=== PATIENT | female | born 1965 | race Asian ===

== ENCOUNTER 2025-03-28 10:02 | Outpatient (AMB) | payer BC, SELFPAY ==
--- NOTE | 2025-03-28 10:10 | MHC.PC.OV ---
Vital Signs 03/28/25 10:22 Height 4 ft 10.46 in Weight 118 lb 8 oz BMI 24.4 BP 116/80 Blood Pressure Location Lt brachial Position Sitting Pulse 72 Pulse Source Pulse Oximeter Pulse Oximetry (%) 99 Oxygen Delivery Method Room Air Intake Visit Reasons: establish care Lead Consultant Required: No Accompanied by: Self / Same As Patient Allergies mepivacaine Allergy (Severe, Verified 03/28/25 10:56) Shortness of Breath Medication List - Last Reconciled 03/28/25 by Leonides Kimball MD levothyroxine 50 mcg PO DAILY Tobacco use date assessed: 03/28/25 Dental Screening Dental Screen Date: 03/28/25 Did you have a dental visit in the last 12 months?: Yes Did you have a dental problem in the last 6 months where you did not have access to dental care?: No Was dental information given to patient?: Patient has dentist HPI establish care HPI Details Patient comes in today to establish care - is a new patient to the practice Her previous PCP was at [facility] but he reportedly moved down to [place] several months ago States that she feels okay She denies any headaches or dizziness Denies any chest pains, no SOB No nausea/vomiting, no abdominal pain No change in bowel habits noted Recalls that she was experiencing recurrent chest discomfort and pressure earlier this year in May 2024 and had some initial testing done and was advised that her tests at the time all came back normal, including a normal EKG States that she was still working night shifts at the time and took an extended leave of absence/vacation for a few months and just got back to work last January 2025 Relates that she feels a lot better after taking some time off from work and has not had any recurrence of the above symptoms lately She is still scheduled for cardiac testing (echocardiogram and stress testing) at [facility] next week and is wondering if she still needs to proceed with her tests especially since she is now feeling better and has not had any recurrence of her symptoms over the past few months Patient states that she just had some labs done at [facility] about 1 to 2 weeks ago and will try to send us a copy of these lab results [facility] Medical History (Updated 03/28/25 @ 12:16 by Leonides Kimball MD) History of recurrent deep vein thrombosis (DVT) Acquired hypothyroidism Surgical History (Updated 03/28/25 @ 11:02 by Leonides Kimball MD) History of section Family History Other Diabetes Heart disease Hypertension Prostate cancer Social History (Updated 03/28/25 @ 11:04 by Leonides Kimball MD) Housing: House Patient Tobacco Use Status: Never used Tobacco e-Cigarette/Vaping Use: Never Used Second Hand Smoke Exposure: No service: No Current occupational status: employed Current occupation: nurse Current occupational exposures/hazards: No Cognitive needs: No Hearing needs: No Vision needs: Yes Questionnaire PHQ-9 Over the last 2 weeks, how often have you been bothered by any of the following problems? 1. Little interest or pleasure in doing things: not at all 2. Feeling down, depressed, or hopeless: not at all 3. Trouble falling or staying asleep, or sleeping too much: not at all 4. Feeling tired or having little energy: not at all 5. Poor appetite or overeating: not at all 6. Feeling bad about yourself - or that you are a failure or have let yourself or your family down: not at all 7. Trouble concentrating on things, such as reading the newspaper or watching television: not at all 8. Moving or speaking so slowly that other people could have noticed. Or the opposite - being so fidgety or restless that you have been moving around a lot more than usual: not at all 9. Thoughts that you would be better off or of hurting yourself in some way: not at all Total score: 0 Depression Screening Interpretation: Negative Depression Screening Done: Yes 65494 - PHQ-9 Billing: Yes Source: Developed by Drs. Rolando Yeboah, Vivian Cordova, Braulio Monsivais and colleagues, with an educational greta from [employer]. Thrive Questionnaire Date Thrive assessed: 03/28/25 I am a: Patient What is your living situation today?: I have a steady place to live Within the past 12 months, did the food you bought not last and you didn't have the money to get more?: Never true Within the past 12 months, did you worry whether your food would run out before you got money to buy more?: Never true Do you have trouble paying for medicines?: No Do you have trouble getting transportation to medical appointments?: No Do you have trouble paying your heating and electricity bill?: I choose not to answer this question Do you have trouble taking care of your child, family member or friend?: No Do you have trouble with day-to-day activities such as bathing, preparing meals, shopping, managing finances, etc.?: No Are you currently unemployed and looking for a job?: No Are you interested in more education?: No Please select the resources that you would like help with: Care for elder or disabled Currently or been in a relationship where the following occur: I choose not to answer THRIVE Score: 0 AUDIT C Alcohol Use Questionnaire (AUDIT-C) 1. How often do you have a drink containing alcohol?: Never 3. How often do you have six or more drinks on one occasion?: Never Total Score: 0 Score Reviewed/Action Taken: Yes ROBERT-7 AMB Questionnaire ROBERT-7 Date ROBERT - 7 assessed: 03/28/25 Feeling nervous, anxious, or on edge: 0 = Not at all Not being able to stop or control worryin = Not at all Worrying too much about different things: 0 = Not at all Trouble relaxin = Not at all Being so restless that it is hard to sit still: 0 = Not at all Becoming easily annoyed or irritable: 0 = Not at all Feeling afraid as if something awful might happen: 0 = Not at all Total ROBERT-7 score (0-4 normal; 5-9 mild; 10-14 moderate; 15-21 severe): 0 Source: Developed by Drs. Rolando Yeboah, Vivian Cordova, Braulio Monsivais and colleagues, with an educational greta from [employer]. Review of Systems Const Denies chills, Denies fatigue, Denies fever(s) and Denies headache(s) ENT Denies dysphagia, Denies dizziness, Denies otalgia, Denies headache(s), Denies neck pain, Denies odynophagia and Denies sore throat Card Denies chest pain, Denies palpitations and Denies dyspnea Resp Denies chest congestion, Denies cough and Denies dyspnea GI Denies abdominal pain, Denies constipation, Denies dysphagia, Denies heartburn, Denies diarrhea, Denies nausea, Denies odynophagia and Denies vomiting Denies difficulty voiding, Denies nocturia, Denies dysuria and Denies urinary urgency Musc Denies back pain and Denies neck pain Skin/Breast Denies rash Neuro Denies dizziness and Denies headache(s) Endo Denies fatigue and Denies palpitations Physical exam (Primary Care) Vital Signs: Last Vital Signs Pulse 72 03/28/25 10:22 BP 116/80 03/28/25 10:22 Pulse Ox 99 03/28/25 10:22 Oxygen Delivery Method Room Air 03/28/25 10:22 BMI result Body Mass Index 24.4 Tobacco/Smoking Status: Tobacco use Status Tobacco use date assessed 03/28/25 03/28/25 10:14 Patient Tobacco Use Status Never used Tobacco 03/28/25 10:31 e-Cigarette/Vaping Use Never Used 03/28/25 10:31 PHQ-9: PHQ-9 Score PHQ-9: Total score 0 03/28/25 10:10 Depression Screening Interpretation: Negative Thrive Assessment: Date of Thrive Assessment Date Thrive assessed 03/28/25 03/28/25 10:14 Currently or been in a relationship where the following occur: I choose not to answer Const General: no acute distress and alert HENMT Ears: TM's normal bilaterally and EAC's normal Throat: Yes posterior oropharynx normal and Yes tonsils normal (no TP congestion) Neck Neck: Yes supple and No lymphadenopathy Thyroid: Thyroid normal Resp Auscultation: clear to auscultation bilaterally, no rales and no wheezes Cardio Rate: regular rate Rhythm: regular rhythm Heart sounds: no murmurs GI Palpation (GI): Soft to palpation and nontender Auscultation: normal bowel sounds General: Yes no CVA tenderness Back/Spine/Pelvis Back: no CVA tenderness Thoracic/Lumbar Spine: No lumbar spinal tenderness Skin Rashes: no rashes Extrem General: Yes no clubbing, cyanosis or edema Coding Level of Care Code New Pt Level 4 (53021) Diagnoses Acquired hypothyroidism E03.9 Chest discomfort R07.89 Additional Codes PHQ-9 - 92003 - PHQ-9 Billing: Yes ([id number]) Assessment & Plan Assessment & Plan (1) Acquired hypothyroidism: Code(s): E03.9 - Hypothyroidism, unspecified Category: Medical Plan: Continue Levothyroxine 50 mcg QD Patient states that she just had some labs done at [facility] about 1 to 2 weeks ago and will try to have a copy of these results sent to us for review BILL (2) Chest discomfort: Code(s): R07.89 - Other chest pain Category: Medical Plan: Have advised patient that women in general can present with atypical cardiac symptoms / chest pains so even if she has not had any recent recurrence of the chest discomfort/pressure that she had earlier this year, it is still advisable for her to proceed with her scheduled cardiac testing for a more comprehensive evaluation before chalking up her symptoms to just stress She will proceed with her echocardiogram and cardiac stress testing with cardiology over the next week or so and have advised patient to make sure that we are sent a copy of all her test results for review and documentation Plan Follow up in 3 months
[2025-03-28 10:22] VITALS: BP 116/80; PULSE 72; O2SAT 99; BMI 24.4
--- OUTSIDE RECORDS SUMMARY | 2025-03-28 12:02 | XMS_ITS | Clinical Summary ---
Author Organization [facility] Address [address] [place] [id number] Phone Care Team Providers Care Management Coordinator Name Role Phone Wade Gomez MD Primary Care Provider [phone] Allergies Active Allergy Reactions Criticality Noted Date Comments Mepivacaine Shortness Of Breath High 01/29/2019 Medications levothyroxine (TIROSINT) 50 mcg Cap Take 50 mcg by mouth every morning. Active cholecalciferol (VITAMIN D3) 25 MCG (1,000 unit) tabletIndications: Encounter for gynecological examination without abnormal finding Take 1 tablet (1,000 Units total) by mouth daily. 30 tablet 12 0 Active Active Problems Problem Noted Date Diagnosed Date Acquired hypothyroidism 03/24/2020 Immunizations Immunization Administration Dates Next Due COVID-19 (Pre-03/17) Pfizer Vaccine, mRNA, PF 06/27/2020,05/27/2020 Hepatitis B Adult 06/02/2008,12/18/2007,11/13/19 08 Tdap 03/30/2008 Family History Medical History Relation Comments Prostate cancer Brother No Known Problems Father Diabetes Mother Hypertension Mother Breast cancer Sister Relation Status Comments Brother Alive Father Alive Mother Alive Sister Alive Social History Tobacco Use Types Packs/Day Years Used Date Smoking Tobacco: Never Smokeless Tobacco: Never Alcohol Use Standard Drinks/Week Comments Never 0 (1 standard drink = 0.6 oz pur e alcohol) Education Answer Date Recorded Are you interested in more education? Not on millicent e 09/20/2022 Are you concerned about learning? Not on file 09/20/2022 No 09/20/2022 No 09/20/2022 Digital Access Answer Date Recorded No 10/19/2022 No 10/19/2022 No 10/19/2022 Reliable internet access at home? Not on file 10/19/2022 Device with a working camera? 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 file Not on file Not on file Last Filed Vital Signs Vital Sign Reading Time Taken Comments Blood Pressure 120/72 03/24/2020 12:12 PM EDT Pulse - - Temperature - - Respiratory Rate - - Oxygen Saturation - - Inhaled Oxygen Concentration - - Weight 52.2 kg (115 lb) 03/24/2020 12:12 PM EDT Height 152.4 cm (5') 03/24/2020 12:12 PM EDT Body Mass Index 22.46 03/24/2020 12:12 PM EDT Plan of Treatment Health Maintenance Due Date Last Done Comments LIPID PANEL 1965 TSH LEVEL 1965 DEPRESSION SCREENING 1979 HEPATITIS C SCREENING 09/11/1985 HIV ONE-TIME SCREENING (18-6 5 YEARS) 09/11/1985 MAMMOGRAM 2007 COLOGUARD 09/11/2012 COLONOSCOPY 09/11/2012 COLORECTAL CANCER SCREENING 09/11/2012 FIT TEST 09/11/2012 FOBT 09/11/2012 SIGMOIDOSCOPY 09/11/2012 VIRTUAL COLONOSCOPY 09/11/2012 PNEUMOCOCCAL VACCINES (50+ years) (1 of 1 - PCV) 09/11/2017 ZOSTER VACCINES (1 of 2) 09/11/2017 Adult Td,Tdap Booster 03/30/2018 03/30/2008 PAP SMEAR 01/29/2022 01/29/2019, 01/29/2019, 10/26/2014 INFLUENZA VACCINE (#1) 2024 COVID-19 VACCINE (3 - 2024-2 6 season) 2025 06/27/2020, 05/27/2020 RSV VACCINE (1 - 1-dose 75+ series) 09/11/2042 SMOKING STATUS SCREENING (On ce After 26 Yrs) Completed 01/29/2019 HEPATITIS A VACCINES Aged Out No long er eligible based on patient's age to complete this topic HIB VACCINES Aged Out No longer eligi ble based on patient's age to complete this topic MENINGOCOCCAL VACCINES (ACWY) Aged Out No longer eligible based on patient's age to complete this topic MENINGOCOCCAL VACCINES (B) Aged Out N o longer eligible based on patient's age to complete this topic Medical Devices Not on file Procedures Procedure Name Priority Date/Time Associated Diagnosis Comments PAP TEST Routine 01/29/2019 12:00 AM EDT from Last 3 Months or Most Recently Relevant to Health Maintenance Results * Pap Smear (01/29/2019 12:00 AM EDT) 01/29/2019 02/01/2019 3:5 3 PM EDT Narrative SEE NARRATIVE - 02/04/2019 11:37 [place] [address] Film Printer: Magdalena Bacon MD NURSE TRANSPLANT Cytology Report FINAL DIAGNOSIS A. PAP SMEAR (SUREPATH) CE: SPECIMEN ADEQUACY: Satisfactory for evaluation; transformation zone present. INTERPRETATION: NEGATIVE FOR INTRAEPITHELIAL LESION OR MALIGNANCY. Electronically Signed Out By: GEE Wilcox(ASCP) The Pap test is a screening test primarily for squamous cancers and precursors and has associated false-negative and false-positive results. New technologies such as liquid-based preparations may decrease but will not eliminate all false-negative results. Regular sampling and follow-up of unexplained clinical signs and symptoms are recommended to minimize false negative results. PROCEDURES/ADDENDA HPV Testing (Requested) Ordered Date: 02/01/2019 A. PAP SMEAR (SUREPATH) CE: Human Papilloma Virus Test Negative for high-risk human papillomavirus types 16, 18, 45 and the Other high risk probe set (Includes 31, 33, 35, 39, 51, 52, 56, 58, 59, 66, 68) by [employer] Onclarity HR-HPV analysis. Clinical correlation is advised. This HPV test was performed at [facility], [address] [place] [address]. This test has been FDA approved for SurePath cervical cytology specimens. The accuracy and precision of this test for all other specimen sources has been verified in the Cytopathology Laboratory of the [facility] and has not been cleared or approved by the U.S. Food and Drug Administration. Clinical correlation is advised. CLINICAL HISTORY Date of Last Menstrual Period: Not Provided Menstrual History: Vira-Menopausal Other Clinical Conditions: Screening Pap SPECIMEN SOURCE A: PAP SMEAR (SUREPATH) CE Patient Name: ANDREY BHAKTA : 1965 (Age: 53) Sex: F Institution: [facility] Location: [facility] Date of Collection: 01/29/2019 Date of Reported: 02/04/2019 11:27 Results to: Mary Villareal MD Mary Villareal MD CYTOLOGY ORDERABLES Edited Result - Final SEE NARRATIVE from Last 3 Months or Most Recently Relevant to Health Maintenance Insurance [employer] [place] OUT OF [facility] PPO [facility] OUT OF STATE PPO OUT [facility] PPO OUT OF [facility] PPO OUT OF STATE PPO PPO OUT OF STATE PPO OUT OF [facility] PPO OUT OF STATE PPO Care Teams Management Coordinator Relationship Specialty Start Date End Date Wade Gomez MD PCP - General Internal Medicine 03/13/18 Additional Source Comments The information contained in this document represents components of the legal health record. It is not the complete legal health record.[facility]
--- OUTSIDE RECORDS SUMMARY | 2025-03-28 12:02 | XMS_ITS | Patient Health Record ---
Author Organization [facility] Address [address] [address] Care Team Providers Care Utilization Review Specialist Name Role Phone TANISHA HERMOSILLO, PAUL Primary Care Provider [facility] Santana Unavailable [phone] Allergies Allergen (clinical drug ingredient) Drug/Non Drug Allergy documented on EMR Reaction Allergy Type Onset Date Status mepivacaine Mepivacaine SHORT OF BREATH Drug Allergy Active Reason For Referral No Information Medications Medication SIG (Take, Route, Frequency, Duration) Notes Start Date End Date Status Omeprazole 20 MG 1 capsule 1/2 to 1 h our before morning meal Orally Once a day Active Vitamin D 50,000 IU 1 ORAL WEEKLY; Durat ion: 12 WEEKS Active Levothyroxine Sodium 50 MCG 1 tablet in the morning on an empty stomach Orally Once a day; Duration: 30 day(s) Active Social History Tobacco Use: Social History Observation Description Date Details (start date - stop date) Never Smoker NA - NA Tobacco Use/Smoking Question Answer Notes Are you a nonsmoker Alcohol Screen (Audit-C) Question Answer Notes Did you have a drink containing alcohol in the p ast year? No Points 0 Interpretation Negative Problems Problem Type SNOMED Code ICD Code Onset Dates Problem Status W/U Status Risk Notes Problem Hypothyroidism (75878063) Hypothyroidism, unspecified (E03.9) Active confirmed Problem Gastro-esophageal reflux disease without esophagitis (867854065) Gastro-esophage al reflux disease without esophagitis (K21.9) Active confirmed Problem COVID-19 (390249665) COVID-19 (U07.1) Active confirmed Vital Signs Temperature 97.8 degrees Fahrenheit 12/06/2024 Blood pressure diastolic 84 mm Hg 12/06/2024 Height 60 in 12/06/2024 Blood pressure systolic 124 mm Hg 12/06/2024 Weight 117 lbs 12/06/2024 BMI 22.85 kg/m2 12/06/2024 Encounters Encounter Location Date Provider Diagnosis Total [facility] [address] [place] [address] 12/06/2024 [facility] M[facility] Encounter for gynecological examination (general) (routine) without abnormal findings Z01.419 and Encounter for screening mammogram for malignant neoplasm of breast Z12.31 Assessments Encounter Date Diagnosis (ICD Code) Assessment Notes Treatment Notes Treatment Clinical Notes Section Notes 12/06/2024 Encounter for gynecological examination (general) (routine) without abnormal findings (ICD-10 - Z01.419) During the visit, the following areas of concern were addressed: Discussed cervical cancer screening with either cytology alone every 3 years or high risk HPV co-testing every 5 years as per ASCCP guidelines. Advised continued annual pelvic exams. Patient encouraged to increase her level of exercise. SBE technique encouraged/tau ght. Patient reminded when annual mammogram is due. Patient encouraged to keep colon screening up to date. 12/06/2024 Encounter for screening mammogram for malignant neoplasm of breast (ICD-10 - Z12.31) Plan Of Treatment Pending Test Test Name Order Date MM Digital Screening Mammogram 3D 2022 MM Digital Screening Mammogram 3D 2023 MM Digital Screening Mammogram 3D 2024 Next Appt Details Provider Name:[facility] Sifuentes, 12/12/2025 08:00:00 AM, [address], [place], [address], Insurance Providers Payer Name Payer Address Payer Phone Subscriber Number Group Number Insured Name Patient Relationship to Insured Coverage Start Date Coverage End Date [employer] [place] [address] [place] [address] [phone] [id number] [employer] Spouse - patient is the spouse of the insured Medical (General) History Medical History History ICD Code Hypothyroidism, unspecified E03.9 COVID-19 U07.1 Gastro-esophageal reflux disease without esophagitis K21.9 Surgical History Surgery Date(Month/Year) C- SECTION 07/2004 Needle aspiration left breast (benign) 1 05/2017 Hospitalization History Reason Date(Month/Year) SEE SURGICAL HX
== END 2025-03-28 11:23 | disposition home or self-care (01) ==
LOC: HO.HMCH 10:03
PROVIDERS: Visit Provider Internal Medicine
DX: E03.9 Hypothyroidism, unspecified (principal); R07.89 Other chest pain

== ENCOUNTER → 2025-03-28 10:02 | Outpatient (BNVA) | payer BC, SELFPAY | PROVIDERS: Visit Provider Internal Medicine | DX: R07.89 Other chest pain (principal); E03.9 Hypothyroidism, unspecified | CPT/HCPCS: 96127 ==